=== PATIENT | female | born 2000 | race Caucasian/White ===

== ENCOUNTER 2021-11-30 15:09 | Emergency (ER) | payer BC ==
[2021-12-01 17:56] LABS: SARS-CoV-2 PCR by NAA DETECTED (NotDetected)
== END 2021-11-30 18:10 | disposition home or self-care (01) ==
LOC: CSHERS 15:09
DX: U07.1 COVID-19 (principal); J06.9 Acute upper respiratory infection, unspecified
CPT/HCPCS: 99284; U0003; U0005

== ENCOUNTER 2023-05-31 05:06 | Emergency (ER) | payer BC | END 2023-05-31 05:19 | disposition left against medical advice (07) | LOC: CSHERS 05:06 | DX: Z53.21 Procedure and treatment not carried out due to patient leaving prior to being seen by health care provider (principal) ==